=== PATIENT | male | born 1985 | race Caucasian/White ===

== ENCOUNTER 2017-11-24 06:32 | Emergency (ER) | payer OTHER ==
[~2017-11-24] VITALS: Ht 180.3 cm; Wt 77.1 kg
[2017-11-24 06:36] VITALS: BP 117/77
[2017-11-24] MEDS ORDERED: TRUVADA 200 MG1 EAC1 ORAL (06:40)
[2017-11-24] MEDS ORDERED: AMOXICILLIN500 MG ORAL (06:52)
[2017-11-24] MEDS ORDERED: LIDOCAINE VISC100 ML ORAL (06:52)
[2017-11-24 06:56] VITALS: BP 117/77
[2017-11-24] MEDS: Lidocaine 2% Visc 15ml soln ORAL ONE (06:56)
--- NOTE | 2017-11-24 09:38 | Emergency Room Report ---
History of Present Illness General Chief Complaint: Allergic Reaction Source: Patient Present Illness HPI Patient is a 32-year-old male who presented after increased sore throat and congestion. Patient gradual onset of symptoms. He reports having some intermittent generalized abdominal pain for approximately 2 weeks. He denied any fever. He reports having prior history of HIV and reports having prior undetectable viral load as well as normal CD4 count. He denies vomiting or diarrhea. Patient stated that he been having the throat soreness for several days. He had recently stopped his SSRI Allergies: Coded Allergies: No Known Allergies (Unverified , 11/24/17) Patient History Past Medical History: see triage record Reviewed Nursing Documentation: PMH: Agreed, PSxH: Agreed Nursing Documentation-PM Past Medical History: No History, Except For History Of Psychiatric Problem: Yes - anxiety Review of Systems All Other Systems: negative except mentioned in HPI Physical Exam Vital Signs Date Time Temp Pulse Resp B/P (MAP) Pulse Ox O2 Delivery O2 Flow Rate FiO2 11/24/17 06:36 97.5 62 14 117/77 100 General Appearance: well appearing, no apparent distress, alert, GCS 15 Head: normocephalic, atraumatic ENT: hearing grossly normal, normal voice, uvula midline, other - mild uvula swelling no abscess Neck: full range of motion, supple Respiratory: no respiratory distress, speaking full sentences Cardiovascular #1: normal peripheral pulses, regular rate, rhythm Gastrointestinal: normal bowel sounds, non tender, soft, no mass, no organomegaly Musculoskeletal: no calf tenderness Neurologic: normal inspection, alert, oriented x3, responsive, occupational health and safety manager III-XII nml as tested, normal gait Psychiatric: mood/affect normal Skin: no rash Medical Decision Making Diagnostic Impression: Primary Impression: Uvulitis ER Course patient presented for sore throat.Differential diagnosis included but was not limited to uvulitis, angioedema, meningitis, exudative tonsillitis, retropharyngeal abscess, epiglottitis, strep pharyngitis. Patient has a benign exam and does not appear to require any further imaging or laboratory testing at this time. Patient was given decadron as well as lidocaine. Patient was noted to have some improvement in symptoms. The patient is advised to follow up with primary care doctor in 1-2 days. Patient is advised to return if any worsening condition or if any changes in status that are concerning. This report is dictated with [employer] mathematical statistician software which may occasionally lead to discrepancies related to use of this software. Last Vital Signs Date Time Temp Pulse Resp B/P (MAP) Pulse Ox O2 Delivery O2 Flow Rate FiO2 11/24/17 06:56 97.5 14 117/77 100 11/24/17 06:36 62 Status: improved Disposition: HOME, SELF-CARE Condition: Stable Scripts Lidocaine HCl 2% Viscous (Lidocaine HCl 2% Viscous) 100 Ml Solution 15 ML ORAL QID, #120 ML Prov: Tamir Díaz 11/24/17 Amoxicillin* (AMOXIL*) 500 Mg Capsule 500 MG ORAL THREE TIMES A DAY, #21 CAP Prov: Tamir Díaz 11/24/17 Referrals: NOT CHOSEN [facility]/,REFERRING Patient Instructions: Tamir Solomon Nov 24, 2017 09:38
== END 2017-11-24 07:15 | disposition home or self-care (01) ==
LOC: EMR 06:57
DX: K12.2 Cellulitis and abscess of mouth (principal)
CPT/HCPCS: 99283; J8540

== ENCOUNTER 2017-12-12 07:25 | Emergency (ER) | payer OTHER ==
[~2017-12-12] VITALS: Ht 180.3 cm; Wt 77.1 kg
[~2017-12-12 07:25] MED LIST: AMOXICILLIN500 MG ORAL; LIDOCAINE VISC100 ML ORAL; TRUVADA 200 MG1 EAC1 ORAL
[2017-12-12] MEDS ORDERED: BUPROPION XL300 MG ORAL (07:40)
[2017-12-12] MEDS ORDERED: PREPARATION H26 GM TP (07:56)
[2017-12-12] MEDS ORDERED: PREPARATION H C26 GM RC (07:57)
[2017-12-12 08:15] LABS: APPEARANCE,URINE CLEAR; BILIRUBIN, URINE NEGATIVE (NEGATIVE); GLUCOSE, URINE (UA) NEGATIVE (NEGATIVE); KETONES,URINE 1+ (NEGATIVE); LEUKOCYTE ESTERASE ,URINE NEGATIVE (NEGATIVE); NITRITE,URINE NEGATIVE (NEGATIVE); PH,URINE 6.5 (4.5-8.0); PROTEIN,URINE NEGATIVE (NEGATIVE); UROBILINOGEN,URINE NORMAL MG/DL (0.0-1.0)
[2017-12-12 08:17] LABS: COLOR,URINE YELLOW
[2017-12-12] MEDS ORDERED: COLACE100 MG ORAL (08:38)
[2017-12-12] MEDS ORDERED: ANUSOL-HC25 MG RECTAL (08:38)
[2017-12-12 08:41] LABS: HEMATOCRIT 45.2 % (42.0-52.0); HEMOGLOBIN 15.4 G/DL (14.2-18.0); MEAN CORPUSCULAR VOLUME 91 FL (80-99); PLATELET COUNT 168 K/UL (150-450); RED BLOOD COUNT 4.95 M/UL (4.70-6.10); RED CELL DISTRIBUTION WIDTH 11.7 % (11.6-14.8); WHITE BLOOD COUNT 5.1 K/UL (4.8-10.8)
[2017-12-12 09:23] LABS: ANION GAP 6 mmol/L (5-15); BLOOD UREA NITROGEN 16 mg/dL (7-18); CALCIUM 8.8 MG/DL (8.5-10.1); CARBON DIOXIDE 29 MMOL/L (21-32); CHLORIDE 104 MMOL/L (98-107); CREATININE 1.1 MG/DL (0.55-1.30); POTASSIUM 4.2 MMOL/L (3.5-5.1); SODIUM 139 MMOL/L (136-145)
[2017-12-12 09:29] LABS: ALANINE AMINOTRANSFERASE 70 U/L (12-78); ALBUMIN 3.7 G/DL (3.4-5.0); ALBUMIN/GLOBULIN RATIO 1.1 (1.0-2.7); ALKALINE PHOSPHATASE 64 U/L (46-116); ASPARTATE AMINO TRANSFERASE 56 U/L (15-37); BILIRUBIN,TOTAL 0.3 MG/DL (0.2-1.0)
[2017-12-12 10:17] VITALS: BP 128/77
--- NOTE | 2017-12-13 06:46 | Emergency Room Report ---
History of Present Illness General Chief Complaint: Pain Source: Patient Present Illness HPI 32-year-old male, no significant past medical history, presenting with bloody stools for 2 days. Patient states that he has pain with defecation, and his blood on the toilet paper when he wipes. He thinks that he has hemorrhoids. There is no bloody bowel movements in the toilet. No abdominal pain no fever no chills. Not on any blood thinners Allergies: Coded Allergies: No Known Allergies (Unverified , 11/24/17) Patient History Past Medical History: see triage record Past Surgical History: none Pertinent Family History: none Reviewed Nursing Documentation: PMH: Agreed, PSxH: Agreed Nursing Documentation-PMH History Of Psychiatric Problem: Yes - Depression Review of Systems All Other Systems: negative except mentioned in HPI Physical Exam Vital Signs Date Time Temp Pulse Resp B/P (MAP) Pulse Ox O2 Delivery O2 Flow Rate FiO2 12/12/17 07:35 98.1 68 16 117/77 95 Room Air Sp02 EP Interpretation: reviewed, normal General Appearance: normal inspection, well appearing, no apparent distress, alert, GCS 15, non-toxic Head: normocephalic, atraumatic Eyes: bilateral eye normal inspection, bilateral eye PERRL, bilateral eye EOMI ENT: normal ENT inspection, normal pharynx, normal voice, moist mucus membranes Neck: normal inspection, full range of motion, supple Respiratory: normal inspection, lungs clear, normal breath sounds, no respiratory distress, no retraction, no wheezing, speaking full sentences, chest symmetrical Cardiovascular #1: normal inspection, regular rate, rhythm, normal capillary refill Cardiovascular #2: 2+ radial (R), 2+ radial (L) Gastrointestinal: normal inspection, non tender, soft, non-distended, no guarding Rectal: other - External hemorrhoids, nonbleeding at this time, rectal exam with brown stool not bloody Musculoskeletal: normal inspection, back normal, normal range of motion, non- tender Neurologic: normal inspection, alert, oriented x3, responsive, motor strength/ tone normal, sensory intact, normal gait, speech normal Psychiatric: normal inspection, judgement/insight normal, memory normal Skin: normal inspection, normal color, no rash, warm/dry, well hydrated, normal turgor Medical Decision Making Diagnostic Impression: Primary Impression: External bleeding hemorrhoids ER Course 32-year-old male, with painful bowel movements, blood on toilet paper DDX: Likely external hemorrhoids versus internal hemorrhoids, IBS, gastroenteritis, most likely diverticulosis given age Plan: Obtain labs ER course: Patient has remained stable during ED stay. Hemodynamically stable, no bloody bowel movements during ED stay Disposition: Patient is to be discharged to home. Prescriptions given are medications to treat hemorrhoids Patient is instructed to follow up with their primary care doctor within 5 days. Patient is instructed to follow up with gastroenterology in one week if not better Strict return precautions discussed with patient such as fever, chills, worsening/severe pain, bloody bowel movements, dizziness, syncope, nausea, vomiting, which may indicate severe illness. Patient verbalizes understanding and agrees with plan. Please note that this Emergency Department Report was dictated using [employer]'s swim coach technology software, occasionally this can lead to erroneous entry secondary to interpretation by the dictation equipment Last Vital Signs Date Time Temp Pulse Resp B/P (MAP) Pulse Ox O2 Delivery O2 Flow Rate FiO2 12/12/17 10:17 98.0 78 18 128/78 99 Room Air Disposition: HOME, SELF-CARE Condition: Improved Scripts Hydrocortisone Acetate* (ANUSOL-HC*) 25 Mg Supp.rect 1 SUPP RECTAL TWICE A DAY for 5 Days, #10 SUPP Prov: Moy Kaba M.D. 12/12/17 Docusate Sodium* (COLACE*) 100 Mg Capsule 100 MG ORAL THREE TIMES A DAY for 7 Days, #30 CAP Prov: Moy KabaDJuliano 12/12/17 Phenyleph/Pramoxin/Glycr/W.pet (PREPARATION H CREAM) 26 Gm Cream..g. 26 GM RC BID for 5 Days, #1 TUBE 0 Refills Prov: Moy Kaba M.D. 12/12/17 [facility]errals: [facility] (PCP) Patient Instructions: Hemorrhoids, [id number] Additional Instructions: PLEASE FOLLOW UP WITH YOUR PRIMARY CARE DOCTOR AND DIRECTOR OF HOUSING AND ENERGY SERVICES IN 1-2 WEEKS Moy Kaba M.D. Dec 13, 2017 06:46
== END 2017-12-12 09:50 | disposition home or self-care (01) ==
LOC: EMR 07:56
DX: K64.4 Residual hemorrhoidal skin tags (principal)
CPT/HCPCS: 36415; 80053; 81003; 83690; 85007; 85025; 86850; 86900; 86901; 99284

== ENCOUNTER 2017-12-20 16:34 | Emergency (ER) | payer OTHER ==
[~2017-12-20] VITALS: Ht 177.8 cm; Wt 72.6 kg
[~2017-12-20 16:34] MED LIST changes: +ANUSOL-HC25 MG RECTAL; +BUPROPION XL300 MG ORAL; +COLACE100 MG ORAL; +PREPARATION H C26 GM RC; +PREPARATION H26 GM TP
[2017-12-20] MEDS ORDERED: BUPROPION XL300 MG ORAL (16:51)
[2017-12-20] MEDS ORDERED: UNOBMED (16:51)
[2017-12-20] MEDS ORDERED: TRUVADA 200 MG1 EAC1 ORAL (16:51)
[2017-12-20] MEDS ORDERED: Sodium Chloride 500ML 500 ML IV ONE (17:15)
[2017-12-20 17:34] LABS: BASOPHILS % (AUTO) 0.7 % (0.0-2.0); EOSINOPHILS % (AUTO) 0.6 % (0.0-3.0); HEMATOCRIT 44.1 % (42.0-52.0); HEMOGLOBIN 15.1 G/DL (14.2-18.0); LYMPHOCYTES % (AUTO) 23.4 % (20.0-45.0); MEAN CORPUSCULAR VOLUME 90 FL (80-99); MONOCYTES % (AUTO) 10.6 % (1.0-10.0); NEUTROPHILS % (AUTO) 64.8 % (45.0-75.0); PLATELET COUNT 261 K/UL (150-450); RED BLOOD COUNT 4.89 M/UL (4.70-6.10); RED CELL DISTRIBUTION WIDTH 10.8 % (11.6-14.8); WHITE BLOOD COUNT 9.1 K/UL (4.8-10.8)
--- NOTE | 2017-12-20 17:36 | Emergency Room Report ---
History of Present Illness General Chief Complaint: General Complaint Source: Patient Present Illness HPI 32-year-old male presents ED for evaluation. Complaining of testicular pain and dysuria times one week. Burning, 6/10, nonradiating. Denies any discharge. Denies any flank pain. Denies any fevers or chills. States he had STD testing done last week which was negative. Patient also complaining of epigastric abdominal pain, burning, 6/10, nonradiating. History of acid reflux. No other aggravating relieving factors. Denies any other system to Allergies: Coded Allergies: No Known Allergies (Unverified , 11/24/17) Patient History Past Medical History: none Past Surgical History: none Pertinent Family History: none Social History: Denies: smoking, alcohol use, drug use Immunizations: UTD Reviewed Nursing Documentation: PMH: Agreed, PSxH: Agreed Review of Systems All Other Systems: negative except mentioned in HPI Physical Exam Vital Signs Date Time Temp Pulse Resp B/P (MAP) Pulse Ox O2 Delivery O2 Flow Rate FiO2 12/20/17 16:44 98.7 77 18 107/66 95 Room Air 98.8 Sp02 EP Interpretation: reviewed, normal General Appearance: no apparent distress, alert, GCS 15, non-toxic Head: normocephalic Eyes: bilateral eye normal inspection, bilateral eye PERRL ENT: normal ENT inspection Neck: normal inspection Respiratory: chest non-tender, lungs clear, normal breath sounds, speaking full sentences Cardiovascular #1: regular rate, rhythm, no edema Gastrointestinal: normal bowel sounds, soft, non-distended, no guarding, no rebound, tenderness - epigastric Rectal: deferred Genitourinary: no CVA tenderness, other - scrotal TTP Musculoskeletal: normal inspection Neurologic: alert, oriented x3, responsive, motor strength/tone normal, sensory intact, speech normal Psychiatric: normal inspection Skin: normal inspection Lymphatic: normal inspection Medical Decision Making Diagnostic Impression: Primary Impression: Dysuria Additional Impression: External bleeding hemorrhoids ER Course Hospital Course 32 yo M presents to ED c/o chills, dysuria, lower abd pain, testicular pain Differential diagnosis includes-appendicitis, cholecystitis, UTI, testicular torsion Clinical course Patient placed on stretcher. After initial history and physical I ordered labs , IV fluids, pain meds, Scrotal US, CT A/P Labs - no leukocytosis, electrolytes ok, LFTs normal, UA unremarkable Scrotal US shows no evidence of torsion/acute pathology CT scan shows no acute pathology Discussed findings with patient. Patient does document history of ureteral stricture due to childhood trauma. [place] His dysuria symptoms could be related to ureteral stricture. I will provide urology followup on last visit patient noted to have hemorrhoids. Was recommended to see surgery as outpatient for possible removal. Patient states he did not seek referral yet. I will provide him with surgical followup as well I feel this is a highly complex case requiring extensive working including EKG/ Rhythm strip, Xray/CT/US, Blood/urine lab work, repeat exams while in ED, and administration of strong opiates/narcotics for pain control, admission to hospital or close patient follow up. Diagnosis - dysuria, external bleeding hemorrhoids Stable and discharged to home. Followup with PMD. Return to ED if symptoms recur or worsen Labs Test 12/20/17 17:10 12/20/17 17:20 Urine Color Pale yellow Urine Appearance Clear Urine pH 6 (4.5-8.0) Urine Specific [place] 1.010 (1.005-1.035) Urine Protein Negative (NEGATIVE) Urine Glucose (UA) Negative (NEGATIVE) Urine Ketones Negative (NEGATIVE) Urine Occult Blood Negative (NEGATIVE) Urine Nitrite Negative (NEGATIVE) Urine Bilirubin Negative (NEGATIVE) Urine Urobilinogen Normal MG/DL (0.0-1.0) Urine Leukocyte Esterase Negative (NEGATIVE) White Blood Count 9.1 K/UL (4.8-10.8) Red Blood Count 4.89 M/UL (4.70-6.10) Hemoglobin 15.1 G/DL (14.2-18.0) Hematocrit 44.1 % (42.0-52.0) Mean Corpuscular Volume 90 FL (80-99) Mean Corpuscular Hemoglobin 30.9 PG (27.0-31.0) Mean Corpuscular Hemoglobin Concent 34.2 G/DL (32.0-36.0) Red Cell Distribution Width 10.8 % (11.6-14.8) Platelet Count 261 K/UL (150-450) Mean Platelet Volume 7.5 FL (6.5-10.1) Neutrophils (%) (Auto) 64.8 % (45.0-75.0) Lymphocytes (%) (Auto) 23.4 % (20.0-45.0) Monocytes (%) (Auto) 10.6 % (1.0-10.0) Eosinophils (%) (Auto) 0.6 % (0.0-3.0) Basophils (%) (Auto) 0.7 % (0.0-2.0) Sodium Level 136 MMOL/L (136-145) Potassium Level 3.8 MMOL/L (3.5-5.1) Chloride Level 100 MMOL/L (98-107) Carbon Dioxide Level 29 MMOL/L (21-32) Anion Gap 7 mmol/L (5-15) Blood Urea Nitrogen 14 mg/dL (7-18) Creatinine 1.3 MG/DL (0.55-1.30) Estimat Glomerular Filtration Rate > 60 mL/min (>60) Glucose Level 101 MG/DL (74-106) Calcium Level 9.1 MG/DL (8.5-10.1) Total Bilirubin 0.5 MG/DL (0.2-1.0) Aspartate Amino Transf (AST/SGOT) 17 U/L (15-37) Alanine Aminotransferase (ALT/SGPT) 22 U/L (12-78) Alkaline Phosphatase 67 U/L (46-116) Total Protein 7.9 G/DL (6.4-8.2) Albumin 4.0 G/DL (3.4-5.0) Globulin 3.9 g/dL Albumin/Globulin Ratio 1.0 (1.0-2.7) Lipase 105 U/L (73-393) CT/MRI/US Diagnostic Results CT/MRI/US Diagnostic Results #1: Imaging Test Ordered: CT A/P Impression no acute process CT/MRI/US Diagnostic Results #2: Imaging Test Ordered: Pelvic US Impression no acute process Last Vital Signs Date Time Temp Pulse Resp B/P (MAP) Pulse Ox O2 Delivery O2 Flow Rate FiO2 12/20/17 16:44 98.7 77 18 107/66 95 Room Air 98.8 Status: improved Disposition: HOME, SELF-CARE Condition: Stable Referrals: [facility] (PCP) LESTER RUELAS M.D. Dec 20, 2017 17:36
[2017-12-20 17:45] LABS: APPEARANCE,URINE CLEAR; BILIRUBIN, URINE NEGATIVE (NEGATIVE); COLOR,URINE PALE YELLOW; GLUCOSE, URINE (UA) NEGATIVE (NEGATIVE); KETONES,URINE NEGATIVE (NEGATIVE); LEUKOCYTE ESTERASE ,URINE NEGATIVE (NEGATIVE); NITRITE,URINE NEGATIVE (NEGATIVE); PH,URINE 6 (4.5-8.0); PROTEIN,URINE NEGATIVE (NEGATIVE); UROBILINOGEN,URINE NORMAL MG/DL (0.0-1.0)
[2017-12-20 17:48] LABS: ANION GAP 7 mmol/L (5-15); BLOOD UREA NITROGEN 14 mg/dL (7-18); CALCIUM 9.1 MG/DL (8.5-10.1); CARBON DIOXIDE 29 MMOL/L (21-32); CHLORIDE 100 MMOL/L (98-107); CREATININE 1.3 MG/DL (0.55-1.30); POTASSIUM 3.8 MMOL/L (3.5-5.1); SODIUM 136 MMOL/L (136-145)
[2017-12-20 17:53] LABS: ALANINE AMINOTRANSFERASE 22 U/L (12-78); ALKALINE PHOSPHATASE 67 U/L (46-116); ASPARTATE AMINO TRANSFERASE 17 U/L (15-37); BILIRUBIN,TOTAL 0.5 MG/DL (0.2-1.0)
[2017-12-20 19:30] VITALS: BP 110/67
[2017-12-20 20:11] VITALS: BP 110/67
--- NOTE | 2017-12-21 11:37 | Diagnostic Imaging Report ---
Indication: Pain Technique: Multiplanar grayscale and color Doppler imaging of the scrotum Comparison: None Findings: Right testicle measures 3.9 x 1.5 x 2.9 cm. Left testicle measures 4.1 x 1.7 x 2.7 cm. Both testicles demonstrate homogenous x-ray texture. No focal testicular mass is appreciated bilaterally. Normal and symmetric bilaterally flow is noted upon interrogation with color Doppler. No evidence of epididymoorchitis. No hydrocele or varicocele. A right epididymal cyst measures 7 mm in diameter. Impression: No evidence to suggest testicular torsion at this time. Symmetric color flow to the bilateral testicles noted. No evidence of epididymoorchitis bilaterally. Small right epididymal cyst.
--- NOTE | 2017-12-21 11:58 | Diagnostic Imaging Report ---
Indication: Abdominal pain Technique: CT of the abdomen and pelvis utilizing automated exposure control with intravenous contrast. Venous scanning performed. CT dose: Total DLP 661.84 mGycm; CTDI vol 9.81,12.1 mGy Comparison: None Findings: Evaluation limited by lack of oral contrast and paucity of intra-abdominal fat. Within these limitations: Images through the lower chest demonstrate minimal dependent atelectatic changes in the lung bases. Heart size is within normal limits. No pericardial effusion. Liver, gallbladder, spleen, adrenal glands and pancreas are unremarkable in appearance. Kidneys enhance symmetrically. There is no urinary tract stone or hydronephrosis bilaterally. Bladder is moderately distended but otherwise unremarkable. Prostate appears within normal limits for size. There is no free intraperitoneal air or fluid. No evidence of bowel obstruction or definite perienteric inflammatory change. Appendix is normal. No pathologically enlarged lymphadenopathy is identified. Abdominal aorta is normal in caliber. No acute osseous abnormality seen. No abnormality in the soft tissues. Specifically no evidence of subcutaneous gas or infiltration in the perineal region. IMPRESSION: Limited exam as above. No evidence of acute intra-abdominal pathology. This corresponds with the statrad preliminary report. The CT scanner at [facility] is accredited by the [employer] and the scans are performed using protocols designed to limit radiation exposure to as low as reasonably achievable to attain images of sufficient resolution adequate for diagnostic evaluation.
== END 2017-12-20 20:13 | disposition home or self-care (01) ==
LOC: EMR 17:00
DX: R30.0 Dysuria (principal); K64.4 Residual hemorrhoidal skin tags; N50.3 Cyst of epididymis
CPT/HCPCS: 36415; 74177; 76870; 80053; 81003; 83690; 85025; 96361; 96374; 99284; J7040; Q9967; S0028